=== PATIENT | female | born 1960 | race Caucasian/White ===

== ENCOUNTER 2023-09-11 13:24 | Emergency (ER) | payer OTHER ==
--- NOTE | 2023-09-11 14:08 | ED Physician Documentation ---
PD HPI LOWER EXT INJURY - Stated complaint Stated Complaint: RT ANKLE PX - Chief complaint Chief Complaint: Trauma Ext - History obtained from History obtained from: Patient - Additional information Additional information: She was coming on the last step at work and missed the step and inverted her right ankle with moderate pain. It actually only mild if she is not moving it. No other injuries. This happened today. PD PAST MEDICAL HISTORY - Past Medical History Past Medical History: Yes Cardiovascular: None Respiratory: None Neuro: None Endocrine/Autoimmune: None GI: None PERFORATOR: None : None HEENT: None Psych: None Musculoskeletal: None Derm: None - Past Surgical History Past Surgical History: Yes Ortho: Spine surgery - Allergies Allergies/Adverse Reactions: Allergies Allergy/AdvReac Type Severity Reaction Status Date / Time minocycline Allergy Rash Verified 09/11/23 13:37 - Social History Does the pt smoke?: No Smoking Status: Never smoker Does the pt drink ETOH?: No Does the pt have substance abuse?: No - Immunizations Immunizations are current?: Yes - POLST Patient has POLST: No PD ED PE NORMAL - Vitals Vital signs reviewed: Yes - General General: Alert and oriented X 3, No acute distress - Extremities Extremities: Other (No proximal fibular tenderness on the right. She is tender over the lateral malleolus and lateral navicular. No deformity.) - Neuro Neuro: Alert and oriented X 3, Normal speech Results - Vitals Vitals: Vital Signs - 24 hr 09/11/23 09/11/23 13:37 14:41 Temperature 36.5 C Heart Rate 90 80 Respiratory 16 14 Rate Blood Pressure 148/67 H 137/74 H O2 Saturation 97 99 Oxygen O2 Source Room air - Rads (name of study) 3v R ankle XR Relevant Findings:: Final report received (Calc distal fibula and avulsion frx navicular), EMP independent interpretation of test PD Medical Decision Making - ED course ED course: She presents with a right ankle injury after a fall and has a tiny calcification distal to the distal fibula and an avulsion fracture of the navicular. These appear to be fairly minor fractures and I think it is okay for her to walk on it in a boot pending orthopedic follow-up and she was so advised Departure - Departure Disposition: 01 Home, Self Care Clinical Impression: Navicular fracture of ankle Qualifiers: Encounter type: initial encounter Fracture type: closed Fracture alignment: nondisplaced Laterality: right Qualified Code(s): S92.254A - Nondisplaced fracture of navicular [scaphoid] of right foot, initial encounter for closed fracture Condition: Good Record reviewed to determine appropriate education?: Yes Instructions: ED Sprain Ankle W X Ray, ED Fx Foot Follow-Up: [facility] [Provider Group] Comments: As discussed, it looks like you have a chip/avulsion fracture of the navicular bone in the right foot. I think it is okay to gingerly walk and bear weight on it with the boot. Call the orthopedics clinic to follow-up, call today to get an appointment in about a week. Until then Tylenol and/or ibuprofen as needed for pain. You can ice it and elevate it as well. You do not have to wear the boot religiously, i.e. you do not have to wear it in bed or showering, but would wear it when up and around otherwise. Forms: PCP List, Activity restrictions Discharge Date/Time: 09/11/23 14:42
--- NOTE | 2023-09-11 14:18 | XRAY Report ---
PROCEDURE: Ankle 3+V RT INDICATIONS: Trauma TECHNIQUE: 3 views of the ankle were acquired. COMPARISON: None. FINDINGS: Bones: Curvilinear calcification is present distal to the fibula. There is an avulsed triangular fra gment dorsally from the navicular bone. Soft tissues: Mild ankle edema. Achilles tendon appears normal. IMPRESSION: Curvilinear calcification suspicious for avulsion injury of indeterminate age. Triangular fragment is present adjacent to the navicular bone most consistent with acute/subacute avu lsion fracture. Reviewed by: Dia Alegre MD on 09/11/2023 2:17 PM PDT Approved by: Dia Alegre MD on 09/11/2023 2:17 PM PDT Station ID: [id number]
[2023-09-11 14:46] VITALS: BP 137/74; O2SAT 99
== END 2023-09-11 14:42 | disposition home or self-care (01) ==
LOC: ED 13:24
DX: S92.254A Nondisplaced fracture of navicular [scaphoid] of right foot, initial encounter for closed fracture (principal); X50.1XXA Overexertion from prolonged static or awkward postures, initial encounter
CPT/HCPCS: 99283; 99284

== ENCOUNTER 2023-09-18 11:07 | Outpatient (CLI) | payer OTHER ==
--- NOTE | 2023-09-18 16:16 | XRAY Report ---
PROCEDURE: Foot 3+V RT (Weight Bearing) INDICATIONS: RIGHT FOOT PAIN TECHNIQUE: 3 views of the foot were acquired. COMPARISON: Right ankle radiograph dated 324. FINDINGS: Bones: Avulsion injury involving dorsal aspect of proximal navicular bone is again seen. No new fract ure or dislocation. No suspicious bony lesions. Soft tissues: No tibiotalar joint effusion. Achilles tendon appears normal. IMPRESSION: Stable appearance of avulsion injury involving dorsal aspect of proximal navicular bone unchanged fro m prior study. No new fracture or dislocation. Reviewed by: aKran Nguyen MD on 09/18/2023 4:15 PM PDT Approved by: Karan Nguyen MD on 09/18/2023 4:15 PM PDT Station ID: [id number]
== END 2023-09-18 11:08 | disposition home or self-care (01) ==
LOC: DI 11:07
PROVIDERS: ATTEND Orthopaedic Surgery
DX: S92.251A Displaced fracture of navicular [scaphoid] of right foot, initial encounter for closed fracture (principal)

== ENCOUNTER 2023-10-16 08:25 | Outpatient (CLI) | payer OTHER ==
--- NOTE | 2023-10-16 16:22 | XRAY Report ---
PROCEDURE: Foot 3+V RT (Weight Bearing) INDICATIONS: RIGHT FOOT PAIN TECHNIQUE: 3 views of the foot were acquired. COMPARISON: X-ray foot 10/18/2019 FINDINGS: Bones: Avulsion injury of the navicular bone with stable alignment. Minimal intervertebral healing is present. No suspicious bony lesions. Soft tissues: No tibiotalar joint effusion. Achilles tendon appears normal. IMPRESSION: Stable alignment minimal interval healing of navicular bone avulsion fracture. Reviewed by: Dia Alegre MD on 10/16/2023 4:21 PM PDT Approved by: Dia Alegre MD on 10/16/2023 4:21 PM PDT Station ID: [id number]
== END 2023-10-16 08:26 | disposition home or self-care (01) ==
LOC: DI 08:25
PROVIDERS: ATTEND Orthopaedic Surgery
DX: S92.251D Displaced fracture of navicular [scaphoid] of right foot, subsequent encounter for fracture with routine healing (principal)